=== PATIENT | male | born 1995 | race Hispanic/Latino ===

== ENCOUNTER 2023-12-12 18:46 | Emergency (ER) | payer SELFPAY ==
[~2023-12-12 18:46] MED LIST: Iopamidol-370 76% 500 ML MDV (1 ML CHARGE) ONE
[2023-12-12] MEDS ORDERED: Morphine 4 MG/ML VIAL ONE (19:44)
[2023-12-12] MEDS ORDERED: Ondansetron PF 4 MG/2 ML Vial ONE (19:45)
[2023-12-12 19:51] LABS: #Basophils 0.06 10x3/uL (0.0-0.2); #Eosinophils Less than 0.03 10x3/uL (0.0-0.7); %Basophils 0.5 % (0.0-1.0); %Eosinophils 0.2 % (0.0-10.0); %Monocytes 3.8 % (0.0-10.0); %Neutrophils 85.2 % (42.0-75.0); Hematocrit 46.4 % (42.0-52.0); Mean Corpuscular HGB CONC 34.5 g/dL (32.0-36.0); Mean Corpuscular Hemoglobin 29.4 pg (27.0-31.0); Mean Corpuscular Volume 85.1 fL (78.0-98.0); Mean Platelet Volume 10.6 fL (7.4-10.4); Platelet Count 227 10x3/uL (130-400); Red Blood Cell (RBC) Count 5.45 mill/uL (4.70-6.10)
[2023-12-12 20:09] LABS: ALT (SGPT) 47 U/L (8-55); AST (SGOT) 28 U/L (5-34); Albumin 4.7 g/dL (3.5-5.0); Alkaline Phosphatase 87 U/L (40-110); Anion Gap 14 mmol/L (10-20); BUN (Urea Nitrogen) 12 mg/dL (8.9-20.6); Bilirubin, Total 0.6 mg/dL (0.2-1.2); Calc. Creatinine Clearance 0 mL/min (70-130); Calcium 9.8 mg/dL (7.8-10.44); Carbon Dioxide 25 mmol/L (22-29); Chloride 103 mmol/L (98-107); Estimated GFR 126; Globulin 3.4 g/dL (2.4-3.5); Glucose 173 mg/dL (70-105); Lipase 20 U/L (8-78); Potassium 3.5 mmol/L (3.5-5.1); Protein, Total 8.1 g/dL (6.0-8.3); Sodium 138 mmol/L (136-145)
[2023-12-12 20:14] LABS: Troponin I Less than 0.010 ng/mL (< 0.028)
[2023-12-12] MEDS ORDERED: diphenhydrAMINE 50 MG/ML VIAL ONE (20:37)
[2023-12-12] MEDS ORDERED: Labetalol HCl 100 MG/20 ML VIAL ONE (20:38)
[2023-12-12] MEDS ORDERED: Metoclopramide HCl 10 MG (2 mL) VIAL ONE (20:38)
[2023-12-12] MEDS ORDERED: Ketorolac Tromethamine 30 MG (1 mL) VIAL ONE (21:38)
[2023-12-12] MEDS ORDERED: hydrALAZINE 20 MG/ML VIAL ONE (21:38)
[2023-12-12 23:18] LABS: Bacteria/HPF None Seen HPF (None Seen); Bilirubin Negative (Negative); Blood, Urine Negative (Negative); CAUTI Indications for Culture Fever or rigors; Clarity Clear (Clear); Glucose, Urine (Dipstick) 100 mg/dL (Negative); Ketone, Urine Trace mg/dL (Negative); Leukocyte Negative Leu/uL (Negative); Nitrite Negative (Negative); Protein, Urine (Dipstick) 50 mg/dL (Neg-Trace); Squamous Epithelial 0-3 HPF (0-3); Urobilinogen Normal mg/dL (Less than 2); WBC/HPF 0-3 HPF (0-3)
[2023-12-12 23:19] LABS: Specific Gravity, Urine Greater than 1.060 (1.002-1.036)
[2023-12-12 23:20] LABS: Urine Culture Reflex No No
== END 2023-12-13 00:07 | disposition home or self-care (01) ==
LOC: ERS 18:46
DX: R51.9 Headache, unspecified (principal); R11.2 Nausea with vomiting, unspecified; R03.0 Elevated blood-pressure reading, without diagnosis of hypertension; F17.210 Nicotine dependence, cigarettes, uncomplicated; Z75.8 Other problems related to medical facilities and other health care
CPT/HCPCS: 70496; 80053; 81001; 83690; 83735; 84484; 85025; 93005; 96365; 96375; 96376; J0360; J1200; J1885; J2272; J2405; J2765; Q9967